=== PATIENT | male | born 1960 | race African-American/Black ===

== ENCOUNTER 2019-10-17 12:04 | Inpatient (IN) | payer BC, OTHER ==
[~2019-10-17] VITALS: Ht 175.3 cm; Wt 136.1 kg
[2019-10-17] MEDS ORDERED: ONDANSETRON HCL 4MG/2ML INJ IV STA (13:36)
[2019-10-17] MEDS ORDERED: KETOROLAC 30MG/ML VIAL IV STA (13:36)
[2019-10-17] MEDS ORDERED: MORPHINE SULFATE 4 MG/ML CPJ (NOT FOR IM USE) IV STA (13:36)
[2019-10-17] MEDS ORDERED: SODIUM CHLORIDE 0.9% 1,000 ML IV ONE (13:36)
[2019-10-17 17:12] LABS: HEMATOCRIT. 30.9 % (42.0-52.0); HEMOGLOBIN. 10.1 g/dL (14.0-18.0); MEAN CORPUSCULAR HEMOGLOBIN 27.9 pg (28.0-32.0); MEAN CORPUSCULAR VOLUME 85.1 fL (80.0-94.0); MEAN PLATELET VOLUME 7.8 fl (7.4-10.4); PLATELET 317 x1000/uL (130-400); RED BLOOD CELL COUNT 3.63 mill/uL (4.7-6.1); RED CELL DISTRIBUTION WIDTH 14.2 % (11.6-14.6)
[2019-10-17 17:19] LABS: CHLORIDE 100 mEq/L (98-107); INR 1.1; PARTIAL THROMBOPLASTIN TIME 31.3 sec (23.4-31.0); PROTHROMBIN TIME 11.4 sec (9.6-11.0)
[2019-10-17 17:33] LABS: PLATELET ESTIMATE NORMAL
[2019-10-17] MEDS ORDERED: HYDROCODONE/ACETAMINOPHEN 10/325MG TABLET PO PRN (18:45)
[2019-10-17] MEDS ORDERED: HYDROCODONE/ACETAMINOPHEN 5/325MG TABLET PO PRN (18:45)
[2019-10-17] MEDS ORDERED: ONDANSETRON HCL 4MG/2ML INJ IV PRN (18:45)
[2019-10-17 22:30] VITALS: BP 119/82
[2019-10-17] MEDS: HEPARIN 5000 UNITS/ML VIAL SUBCUT SCH (22:30)
[2019-10-18 04:00] VITALS: BP 136/72
[2019-10-18 06:35] LABS: BASOPHILS % 0.4 % (0.0-2.0); EOSINOPHILS % 3.8 % (0.0-5.0); HEMATOCRIT. 28.7 % (42.0-52.0); HEMOGLOBIN. 9.8 g/dL (14.0-18.0); LYMPHOCYTES % 12.5 % (20.0-50.0); MEAN CORPUSCULAR HEMOGLOBIN 28.9 pg (28.0-32.0); MEAN CORPUSCULAR VOLUME 84.4 fL (80.0-94.0); MEAN PLATELET VOLUME 7.9 fl (7.4-10.4); MONOCYTES % 11.8 % (2.0-8.0); NEUTROPHILS % 71.5 % (40.0-76.0); PLATELET 307 x1000/uL (130-400); RED CELL DISTRIBUTION WIDTH 14.5 % (11.6-14.6)
[2019-10-18 06:36] LABS: CHLORIDE 103 mEq/L (98-107)
[2019-10-18 08:00] VITALS: BP 136/80
[2019-10-18] MEDS: HEPARIN 5000 UNITS/ML VIAL SUBCUT SCH (08:46)
[2019-10-18 12:00] VITALS: BP 132/67
[2019-10-18] MEDS ORDERED: INFLUENZA VIRUS VACCINE(AFLURIA) 0.5ML SYR IM ONE (12:00)
[2019-10-18] MEDS: ACETAMINOPHEN 325MG TABLET PO PRN (18:55)
[2019-10-18 20:00] VITALS: BP 115/63
[2019-10-19 00:08] VITALS: BP 133/71
[2019-10-19 04:00] VITALS: BP 148/79
[2019-10-19 08:00] VITALS: BP 126/71
[2019-10-19 12:00] VITALS: BP 147/73
[2019-10-19] MEDS: DIPHENHYDRAMINE 50MG/ML VIAL IV NR ×2 (15:00→22:07)
[2019-10-19] MEDS ORDERED: MIDAZOLAM HCL 2 MG/2 ML VIAL ONE (15:34)
[2019-10-19] MEDS ORDERED: FENTANYL CITRATE/PF 50MCG/ML 2ML VIAL ONE ×2 (15:34→18:09)
[2019-10-19] MEDS ORDERED: VANCOMYCIN HCL 1 GM/VIAL ONE (15:35)
[2019-10-19] MEDS ORDERED: BUPIVACAINE HCL/EPINEPHRINE/PF 0.5%/0.0005 10ML ONE (15:35)
[2019-10-19] MEDS ORDERED: BACITRACIN 50,000 UNITS/VIAL ONE (15:36)
[2019-10-19] MEDS ORDERED: LIDOCAINE HCL 1% 20ML VIAL (Pyxis) INJ ONE (15:47)
[2019-10-19] MEDS ORDERED: PROPOFOL 200MG/20ML VIAL IV ONE (15:47)
[2019-10-19] MEDS ORDERED: ROCURONIUM BROMIDE 10MG/ML VIAL 5ML IV ONE (15:49)
[2019-10-19] MEDS ORDERED: CEFAZOLIN SODIUM 1000MG/VIAL ONE ×2 (15:56→16:00)
[2019-10-19] MEDS ORDERED: SODIUM CHLORIDE 0.9% 10ML VIAL ONE ×2 (15:56→16:00)
[2019-10-19] MEDS ORDERED: LABETALOL HCL 5MG/ML VIAL 20ML IV ONE (16:08)
[2019-10-19] MEDS ORDERED: GLYCOPYRROLATE 0.2 MG/ML 2ML VIAL ONE (17:51)
[2019-10-19] MEDS ORDERED: ONDANSETRON HCL 4MG/2ML INJ IV PRN (18:00)
[2019-10-19] MEDS ORDERED: HYDROCODONE/ACETAMINOPHEN 5/325MG TABLET PO PRN (18:00)
[2019-10-19] MEDS ORDERED: HYDROMORPHONE HCL/PF 2MG/ML CPJ IV PRN (18:00)
[2019-10-19] MEDS ORDERED: HYDRALAZINE 20MG/ML VIAL ONE (18:02)
[2019-10-19] MEDS ORDERED: METOCLOPRAMIDE HCL 10MG/2ML VIAL ONE (18:08)
[2019-10-19] MEDS: HYDROMORPHONE HCL/PF 2MG/ML CPJ IV PRN ×2 (18:59→19:08)
[2019-10-19 20:00] VITALS: BP 158/86
[2019-10-19] MEDS: HYDROCODONE/ACETAMINOPHEN 5/325MG TABLET PO PRN (20:12)
[2019-10-19] MEDS: CEFAZOLIN 1000MG PREMIX 50 ML IV SCH (20:39)
[2019-10-19 23:59] VITALS: BP 146/80
[2019-10-20 04:00] VITALS: BP 123/64
[2019-10-20] MEDS: CEFAZOLIN 1000MG PREMIX 50 ML IV SCH ×3 (04:03→20:32)
[2019-10-20] MEDS: HYDROCODONE/ACETAMINOPHEN 5/325MG TABLET PO PRN ×2 (04:28→21:28)
[2019-10-20 06:32] LABS: BASOPHILS % 0.3 % (0.0-2.0); EOSINOPHILS % 1.3 % (0.0-5.0); HEMATOCRIT. 25.8 % (42.0-52.0); HEMOGLOBIN. 8.7 g/dL (14.0-18.0); LYMPHOCYTES % 7.8 % (20.0-50.0); MEAN CORPUSCULAR HEMOGLOBIN 28.3 pg (28.0-32.0); MEAN PLATELET VOLUME 7.5 fl (7.4-10.4); MONOCYTES % 9.9 % (2.0-8.0); NEUTROPHILS % 80.7 % (40.0-76.0); PLATELET 393 x1000/uL (130-400); RED BLOOD CELL COUNT 3.07 mill/uL (4.7-6.1); RED CELL DISTRIBUTION WIDTH 14.2 % (11.6-14.6)
[2019-10-20 08:00] VITALS: BP 130/67
[2019-10-20] MEDS: ENOXAPARIN 40MG/0.4ML SYR SUBCUT SCH (09:21)
[2019-10-20] MEDS ORDERED: LOV40 SQ (12:10)
[2019-10-20 16:00] VITALS: BP 127/70
[2019-10-20 20:00] VITALS: BP 139/69
[2019-10-20] MEDS: DOCUSATE SODIUM 100MG CAPSULE PO PRN (21:28)
[2019-10-21] VITALS: BP 121/74
[2019-10-21 04:00] VITALS: BP 137/68
[2019-10-21] MEDS: CEFAZOLIN 1000MG PREMIX 50 ML IV SCH ×3 (06:34→20:10)
[2019-10-21 07:55] LABS: BASOPHILS % 0.4 % (0.0-2.0); EOSINOPHILS % 2.4 % (0.0-5.0); HEMATOCRIT. 25.2 % (42.0-52.0); HEMOGLOBIN. 8.5 g/dL (14.0-18.0); LYMPHOCYTES % 12.3 % (20.0-50.0); MEAN CORPUSCULAR HEMOGLOBIN 28.6 pg (28.0-32.0); MEAN CORPUSCULAR VOLUME 84.6 fL (80.0-94.0); MEAN PLATELET VOLUME 7.3 fl (7.4-10.4); MONOCYTES % 10.6 % (2.0-8.0); NEUTROPHILS % 74.3 % (40.0-76.0); PLATELET 428 x1000/uL (130-400); RED BLOOD CELL COUNT 2.98 mill/uL (4.7-6.1); RED CELL DISTRIBUTION WIDTH 14.5 % (11.6-14.6)
[2019-10-21 08:00] VITALS: BP 119/67
[2019-10-21] MEDS: ENOXAPARIN 40MG/0.4ML SYR SUBCUT SCH (08:18)
[2019-10-21] MEDS: HYDROCODONE/ACETAMINOPHEN 5/325MG TABLET PO PRN (09:01)
[2019-10-21] MEDS: ACETAMINOPHEN 325MG TABLET PO PRN (09:01)
[2019-10-21 12:00] VITALS: BP_SYST 127; BP_SYST 166; BP_DIAS 61; BP_DIAS 65
[2019-10-21] MEDS ORDERED: DIPHENHYDRAMINE 50MG CAPSULE PO PRN (14:30)
[2019-10-21 16:00] VITALS: BP 105/52
[2019-10-21 20:00] VITALS: BP 130/72
[2019-10-22] VITALS: BP 126/70
[2019-10-22 04:00] VITALS: BP 109/59
[2019-10-22] MEDS: CEFAZOLIN 1000MG PREMIX 50 ML IV SCH ×3 (04:24→21:34)
[2019-10-22] MEDS: DOCUSATE SODIUM 100MG CAPSULE PO PRN (07:11)
[2019-10-22] MEDS: HYDROCODONE/ACETAMINOPHEN 5/325MG TABLET PO PRN ×2 (07:12→12:21)
[2019-10-22 07:23] LABS: BASOPHILS % 0.5 % (0.0-2.0); EOSINOPHILS % 3.8 % (0.0-5.0); HEMATOCRIT. 23.9 % (42.0-52.0); HEMOGLOBIN. 8.1 g/dL (14.0-18.0); LYMPHOCYTES % 16.5 % (20.0-50.0); MEAN CORPUSCULAR HEMOGLOBIN 28.3 pg (28.0-32.0); MEAN PLATELET VOLUME 7.5 fl (7.4-10.4); MONOCYTES % 9.7 % (2.0-8.0); NEUTROPHILS % 69.5 % (40.0-76.0); PLATELET 422 x1000/uL (130-400); RED BLOOD CELL COUNT 2.84 mill/uL (4.7-6.1); RED CELL DISTRIBUTION WIDTH 14.2 % (11.6-14.6)
[2019-10-22 08:00] VITALS: BP 121/68
[2019-10-22] MEDS: ENOXAPARIN 40MG/0.4ML SYR SUBCUT SCH (09:56)
[2019-10-22 12:00] VITALS: BP 117/63
[2019-10-22 16:00] VITALS: BP 113/71
[2019-10-22 20:00] VITALS: BP 103/56
[2019-10-23] VITALS: BP 110/62
[2019-10-23] MEDS: HYDROCODONE/ACETAMINOPHEN 5/325MG TABLET PO PRN ×2 (00:16→21:18)
[2019-10-23 04:00] VITALS: BP 152/81
[2019-10-23 06:03] LABS: BASOPHILS % 0.3 % (0.0-2.0); EOSINOPHILS % 5.4 % (0.0-5.0); HEMATOCRIT. 22.9 % (42.0-52.0); HEMOGLOBIN. 7.7 g/dL (14.0-18.0); LYMPHOCYTES % 21.9 % (20.0-50.0); MEAN CORPUSCULAR HEMOGLOBIN 28.4 pg (28.0-32.0); MEAN CORPUSCULAR VOLUME 84.7 fL (80.0-94.0); MEAN PLATELET VOLUME 7.4 fl (7.4-10.4); MONOCYTES % 7.6 % (2.0-8.0); NEUTROPHILS % 64.8 % (40.0-76.0); PLATELET 460 x1000/uL (130-400); RED BLOOD CELL COUNT 2.71 mill/uL (4.7-6.1); RED CELL DISTRIBUTION WIDTH 14.1 % (11.6-14.6)
[2019-10-23 06:14] LABS: CHLORIDE 103 mEq/L (98-107)
[2019-10-23 08:00] VITALS: BP 131/69
[2019-10-23] MEDS: ENOXAPARIN 40MG/0.4ML SYR SUBCUT SCH (08:05)
[2019-10-23 12:00] VITALS: BP 154/74
[2019-10-23] MEDS: FERROUS SULFATE 325MG TABLET PO SCH ×2 (13:43→17:46)
[2019-10-23 16:00] VITALS: BP 130/79
[2019-10-23 20:00] VITALS: BP 137/74
[2019-10-24] VITALS: BP 130/78
[2019-10-24 04:00] VITALS: BP 130/78
[2019-10-24] MEDS: HYDROCODONE/ACETAMINOPHEN 5/325MG TABLET PO PRN (06:28)
[2019-10-24 07:27] LABS: BASOPHILS % 0.5 % (0.0-2.0); EOSINOPHILS % 4.4 % (0.0-5.0); HEMATOCRIT. 23.2 % (42.0-52.0); HEMOGLOBIN. 7.7 g/dL (14.0-18.0); MEAN CORPUSCULAR HEMOGLOBIN 28.2 pg (28.0-32.0); MEAN CORPUSCULAR VOLUME 84.8 fL (80.0-94.0); MEAN PLATELET VOLUME 7.2 fl (7.4-10.4); MONOCYTES % 8.6 % (2.0-8.0); NEUTROPHILS % 63.5 % (40.0-76.0); PLATELET 482 x1000/uL (130-400); RED BLOOD CELL COUNT 2.73 mill/uL (4.7-6.1)
[2019-10-24 07:34] LABS: CHLORIDE 103 mEq/L (98-107)
[2019-10-24 08:00] VITALS: BP 124/65
[2019-10-24] MEDS: FERROUS SULFATE 325MG TABLET PO SCH ×3 (09:40→16:54)
[2019-10-24] MEDS: ENOXAPARIN 40MG/0.4ML SYR SUBCUT SCH (09:40)
[2019-10-24 12:00] VITALS: BP 145/85
[2019-10-24 20:00] VITALS: BP 114/55
[2019-10-25] VITALS: BP 109/56
[2019-10-25 04:00] VITALS: BP 133/69
[2019-10-25] MEDS: ACETAMINOPHEN 325MG TABLET PO PRN (04:36)
[2019-10-25 08:00] VITALS: BP 111/57
[2019-10-25] MEDS: FERROUS SULFATE 325MG TABLET PO SCH ×3 (08:43→17:39)
[2019-10-25] MEDS: ENOXAPARIN 40MG/0.4ML SYR SUBCUT SCH (08:44)
[2019-10-25 12:00] VITALS: BP 113/59
[2019-10-25] MEDS: HYDROCODONE/ACETAMINOPHEN 5/325MG TABLET PO PRN ×2 (14:14→17:48)
[2019-10-25 16:00] VITALS: BP 114/58
[2019-10-25 20:00] VITALS: BP 115/88
[2019-10-26] VITALS: BP 119/59
[2019-10-26] MEDS: HYDROCODONE/ACETAMINOPHEN 5/325MG TABLET PO PRN ×2 (03:41→13:19)
[2019-10-26 04:00] VITALS: BP 102/49
[2019-10-26 06:34] LABS: CHLORIDE 105 mEq/L (98-107)
[2019-10-26 07:12] LABS: EOSINOPHILS % 3.8 % (0.0-5.0); HEMATOCRIT. 23.6 % (42.0-52.0); HEMOGLOBIN. 7.8 g/dL (14.0-18.0); LYMPHOCYTES % 28.4 % (20.0-50.0); MEAN CORPUSCULAR HEMOGLOBIN 27.7 pg (28.0-32.0); MEAN CORPUSCULAR VOLUME 84.1 fL (80.0-94.0); MEAN PLATELET VOLUME 7.2 fl (7.4-10.4); MONOCYTES % 8.5 % (2.0-8.0); NEUTROPHILS % 58.3 % (40.0-76.0); PLATELET 511 x1000/uL (130-400); RED BLOOD CELL COUNT 2.81 mill/uL (4.7-6.1); RED CELL DISTRIBUTION WIDTH 14.2 % (11.6-14.6)
[2019-10-26 08:00] VITALS: BP 102/60
[2019-10-26] MEDS: FERROUS SULFATE 325MG TABLET PO SCH ×3 (09:22→17:32)
[2019-10-26] MEDS: ENOXAPARIN 40MG/0.4ML SYR SUBCUT SCH (09:23)
[2019-10-26 12:00] VITALS: BP 113/65
[2019-10-26 16:00] VITALS: BP 127/72
[2019-10-26 20:00] VITALS: BP 106/62
[2019-10-27] VITALS: BP 109/55
[2019-10-27] MEDS: ACETAMINOPHEN 325MG TABLET PO PRN (00:28)
[2019-10-27] MEDS: HYDROCODONE/ACETAMINOPHEN 5/325MG TABLET PO PRN ×3 (01:53→23:19)
[2019-10-27 04:00] VITALS: BP 135/76
[2019-10-27 08:00] VITALS: BP 128/65
[2019-10-27] MEDS: FERROUS SULFATE 325MG TABLET PO SCH ×3 (09:40→18:03)
[2019-10-27] MEDS: ENOXAPARIN 40MG/0.4ML SYR SUBCUT SCH (09:40)
[2019-10-27 12:00] VITALS: BP 114/54
[2019-10-27 16:00] VITALS: BP 121/60
[2019-10-27 20:00] VITALS: BP 119/61
[2019-10-28] VITALS: BP 101/60
[2019-10-28 04:00] VITALS: BP 126/81
[2019-10-28 08:00] VITALS: BP 111/60
[2019-10-28] MEDS: FERROUS SULFATE 325MG TABLET PO SCH ×3 (09:13→17:25)
[2019-10-28] MEDS: ENOXAPARIN 40MG/0.4ML SYR SUBCUT SCH (09:17)
[2019-10-28] MEDS: DOCUSATE SODIUM 100MG CAPSULE PO PRN (09:17)
[2019-10-28 12:00] VITALS: BP 140/66
[2019-10-28] MEDS: HYDROCODONE/ACETAMINOPHEN 5/325MG TABLET PO PRN ×2 (12:47→19:59)
[2019-10-28 16:13] VITALS: BP 112/62
[2019-10-29] VITALS: BP 123/64
[2019-10-29 04:00] VITALS: BP 120/64
[2019-10-29 08:00] VITALS: BP 136/78
[2019-10-29] MEDS: FERROUS SULFATE 325MG TABLET PO SCH ×3 (08:27→18:03)
[2019-10-29] MEDS: HYDROCODONE/ACETAMINOPHEN 5/325MG TABLET PO PRN ×2 (08:27→17:06)
[2019-10-29] MEDS: ENOXAPARIN 40MG/0.4ML SYR SUBCUT SCH (08:28)
[2019-10-29 12:00] VITALS: BP 139/78
[2019-10-29 16:00] VITALS: BP 140/77
[2019-10-29 20:00] VITALS: BP 122/65
[2019-10-30] VITALS: BP 123/66
[2019-10-30] MEDS: ACETAMINOPHEN 325MG TABLET PO PRN ×3 (02:56→20:07)
[2019-10-30 04:00] VITALS: BP 125/66
[2019-10-30 08:00] VITALS: BP 127/77
[2019-10-30 08:38] LABS: BASOPHILS % 0.8 % (0.0-2.0); EOSINOPHILS % 5.3 % (0.0-5.0); HEMOGLOBIN. 8.1 g/dL (14.0-18.0); LYMPHOCYTES % 33.8 % (20.0-50.0); MEAN CORPUSCULAR HEMOGLOBIN 27.4 pg (28.0-32.0); MEAN PLATELET VOLUME 6.9 fl (7.4-10.4); MONOCYTES % 7.5 % (2.0-8.0); NEUTROPHILS % 52.6 % (40.0-76.0); PLATELET 437 x1000/uL (130-400); RED BLOOD CELL COUNT 2.94 mill/uL (4.7-6.1); RED CELL DISTRIBUTION WIDTH 14.6 % (11.6-14.6)
[2019-10-30 08:48] LABS: CHLORIDE 109 mEq/L (98-107)
[2019-10-30] MEDS: FERROUS SULFATE 325MG TABLET PO SCH ×3 (09:08→18:05)
[2019-10-30] MEDS: ENOXAPARIN 40MG/0.4ML SYR SUBCUT SCH (09:08)
[2019-10-30 12:00] VITALS: BP 130/71
[2019-10-30 16:00] VITALS: BP 119/66
[2019-10-30 20:00] VITALS: BP 128/73
[2019-10-31] VITALS: BP 148/82
[2019-10-31 04:00] VITALS: BP 151/84
[2019-10-31 08:00] VITALS: BP 132/73
[2019-10-31] MEDS: ENOXAPARIN 40MG/0.4ML SYR SUBCUT SCH (09:07)
[2019-10-31] MEDS: FERROUS SULFATE 325MG TABLET PO SCH ×3 (09:07→18:09)
[2019-10-31 12:00] VITALS: BP 131/78
[2019-10-31 16:00] VITALS: BP 108/54
[2019-10-31 20:00] VITALS: BP 133/74
[2019-11-01] VITALS: BP 130/76
[2019-11-01 04:00] VITALS: BP 123/65
[2019-11-01 08:00] VITALS: BP 116/66
[2019-11-01] MEDS: FERROUS SULFATE 325MG TABLET PO SCH ×3 (08:48→17:11)
[2019-11-01] MEDS: ENOXAPARIN 40MG/0.4ML SYR SUBCUT SCH (08:48)
[2019-11-01 12:00] VITALS: BP 118/77
[2019-11-01 15:58] VITALS: BP 118/77
[2019-11-01 16:00] VITALS: BP 120/69
== END 2019-11-01 18:55 | DRG 480 ==
LOC: ER 12:04 → ENRESERV 20:17 → 7WST 21:03
PROVIDERS: ADMIT Family Medicine Adult Medicine; ATTEND Family Medicine Adult Medicine
PROC: 0QSC04Z Reposition Left Lower Femur with Internal Fixation Device, Open Approach (ICD-10-PCS; principal; 2019-10-19)
PROC: BQ14ZZZ Fluoroscopy of Left Femur (ICD-10-PCS; 2019-10-19)
DX: S72.462A Displaced supracondylar fracture with intracondylar extension of lower end of left femur, initial encounter for closed fracture (principal); E43 Unspecified severe protein-calorie malnutrition; Z68.41 Body mass index [BMI] 40.0-44.9, adult; D62 Acute posthemorrhagic anemia; I10 Essential (primary) hypertension; M10.9 Gout, unspecified; V89.2XXA Person injured in unspecified motor-vehicle accident, traffic, initial encounter; Y93.89 Activity, other specified; Y92.488 Other paved roadways as the place of occurrence of the external cause; Y99.8 Other external cause status
CPT/HCPCS: 36415; 71045; 72100; 73502; 73552; 73560; 73600; 73620; 73700; 76000; 80048; 80053; 83735; 83880; 84484; 84550; 85025; 86850; 86900; 90686; 93005; 93970; 93971; 97110; 97116; 97162; 97164; 97166; 97530; 97535; 99285; A6261; C1713; J0171; J0360; J0690; J1170; J1200; J1644; J1650; J1885; J2250; J2270; J2405; J2704; J2765; J3010; J3370; J3490; J7030; L1830; Q0163